=== PATIENT | male | born 1955 | race Two or more races ===

== ENCOUNTER 2019-12-02 05:11 | Day surgery (SDC) | payer OTHER ==
[~2019-12-02 05:11] MED LIST: HYZAAR 100-12.1 EACH PO; LIPITOR20 MG PO; METFORMIN HCL500 M3 PO; TRICOR145 MG PO
== END 2019-12-02 11:50 | disposition home or self-care (01) ==
LOC: CIR.AMB 05:11 → ADM 08:00 → CIR.AMB 08:00
PROVIDERS: ATTEND Specialist
DX: D21.0 Benign neoplasm of connective and other soft tissue of head, face and neck (principal)